=== PATIENT | female | born 1985 | race Hispanic/Latino ===

== ENCOUNTER 2017-03-24 06:07 | Emergency (ER) | payer SELFPAY ==
--- NOTE | 2017-03-24 06:47 | EDM.PDOC ---
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 Of great concern to her considering that she is about 10 weeks . The has been going very well for her. She is 6 para 2, miscarriage 1 with 2 previous abortions. She is not having any pelvic pain or cramping. No chest or abdominal pain. No difficulty breathing or shoulder discomfort. There has not been any prior vaginal bleeding or pelvic discomfort with this . They have just moved to town recently. She is not yet established with an flaker tender. She has not had a pelvic ultrasound with this . 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: Psychiatric History: Reports: Depression, Suicide Attempt <Miguel Gonzáles - Last Filed: 03/24/17 07:11> Social & Family History - Tobacco Use Smoking Status *Q: Never Smoker - Recreational Drug Use Recreational Drug Use: No <Miguel Gonzáles - Last Filed: 03/24/17 07:11> ED ROS GENERAL - Review of Systems Review Of Systems: See Below Constitutional: Denies: Fever, Chills HEENT: Reports: No Symptoms Respiratory: Denies: Shortness of Breath, Pleuritic Chest Pain Cardiovascular: Denies: Chest Pain GI/Abdominal: Denies: Abdominal Pain, Nausea, Vomiting : Reports: Other (Very small amount of vaginal bleeding this morning that has stopped) Musculoskeletal: Denies: Shoulder Pain, Back Pain Skin: Reports: No Symptoms Neurological: Denies: Dizziness <Miguel Gonzáles - Last Filed: 03/24/17 07:11> ED EXAM - Physical Exam Exam: See Below Exam Limited By: No Limitations General Appearance: Alert, No Apparent Distress Throat/Mouth: Normal Inspection, Normal Oropharynx Neck: Supple Respiratory/Chest: No Respiratory Distress, Lungs Clear, Normal Breath Sounds Cardiovascular: Regular Rate, Rhythm GI/Abdominal Exam: Soft, Non-Tender. No: Guarding, Rebound (Female) Exam: Normal External Exam, Vaginal Bleeding (very small amount of blood in the posterior vaginal vault, no clots or tissue visible, cvx is closed ) Extremities: Normal Inspection, Normal Range of Motion Neurological: Alert, Oriented, No Motor/Sensory Deficits Skin Exam: Warm, Dry, Normal Color <Miguel Gonzáles - Last Filed: 03/24/17 07:11> Course <Miguel Gonzáles - Last Filed: 03/24/17 07:11> <Colton Amaral - Last Filed: 03/24/17 09:01> - Vital Signs Last Recorded V/S: Last Vital Signs Temp 35.9 C 03/24/17 06:14 Pulse 80 03/24/17 06:14 Resp 16 03/24/17 06:14 BP 140/91 H 03/24/17 06:14 Pulse Ox 98 03/24/17 06:14 - Orders/Labs/Meds Orders: Active Orders 24 hr Category Date Time Status OB Transvaginal [US] Stat Exams 03/24/17 06:35 Taken ABO/RH TYPE [BBK] Stat Lab 03/24/17 06:55 Results PATIENT RETYPE [BBK] Stat Lab 03/24/17 06:55 Results Labs: Laboratory Tests 03/24/17 03/24/17 03/24/17 Range/Units 06:55 06:55 06:55 WBC 6.52 (3.98-10.04) K/mm3 RBC 4.28 (3.98-5.22) M/mm3 Hgb 12.1 (11.2-15.7) gm/L Hct 36.0 (34.1-44.9) % MCV 84.1 (79.4-94.8) fl MCH 28.3 (25.6-32.2) pg MCHC 33.6 (32.2-35.5) g/dl RDW Std Deviation 42.7 (36.4-46.3) fL Plt Count 302 (182-369) K/mm3 MPV 8.7 L (9.4-12.3) fl Neut % (Auto) 56.7 (34.0-71.1) % Lymph % (Auto) 27.6 (19.3-51.7) % [place] % (Auto) 7.2 (4.7-12.5) % Eos % (Auto) 7.7 H (0.7-5.8) Baso % (Auto) 0.5 (0.1-1.2) % Neut # (Auto) 3.70 (1.56-6.13) K/mm3 Lymph # (Auto) 1.80 (1.18-3.74) K/mm3 [place] # (Auto) 0.47 H (0.24-0.36) K/mm3 Eos # (Auto) 0.50 H (0.04-0.36) K/mm3 Baso # (Auto) 0.03 (0.01-0.08) K/mm3 HCG, Qual Positive H (NEGATIVE) HCG, Quant 5959.0 mIU/mL Blood Type 03/24/17 Range/Units 06:55 WBC (3.98-10.04) K/mm3 RBC (3.98-5.22) M/mm3 Hgb (11.2-15.7) gm/L Hct (34.1-44.9) % MCV (79.4-94.8) fl MCH (25.6-32.2) pg MCHC (32.2-35.5) g/dl RDW Std Deviation (36.4-46.3) fL Plt Count (182-369) K/mm3 MPV (9.4-12.3) fl Neut % (Auto) (34.0-71.1) % Lymph % (Auto) (19.3-51.7) % [place] % (Auto) (4.7-12.5) % Eos % (Auto) (0.7-5.8) Baso % (Auto) (0.1-1.2) % Neut # (Auto) (1.56-6.13) K/mm3 Lymph # (Auto) (1.18-3.74) K/mm3 [place] # (Auto) (0.24-0.36) K/mm3 Eos # (Auto) (0.04-0.36) K/mm3 Baso # (Auto) (0.01-0.08) K/mm3 HCG, Qual (NEGATIVE) HCG, Quant mIU/mL Blood Type A POSITIVE - Re-Assessments/Exams Free Text/Narrative Re-Assessment/Exam: 03/24/17 07:12 change of shift, labs, pelvic US pending. Have transferred care to Dr Amaral. (Miguel Gonzáles) Free Text/Narrative Re-Assessment/Exam: 03/24/17 07:[address] Lorenz at change of shift. Patient is in ultrasound at present. Qualitative beta-hCG is positive. Quantitative is not yet available. I did order a blood type and screen as well. 03/24/17 08:35 Blood type is A+. 03/24/17 09:00 took a while but the ultrasound report is now back. It indicates a gestational sac and fetus that correlates with a 6 week 2 day . Last normal menstrual period was 807 which would give her a gestational age of 10 weeks and 0 days. No heartbeat is appreciated at this time. This suggests demise and at this time she is an incomplete miscarriage. I therefore arranged follow-up with Dr. Anders Gonsales flaker tender at the [facility] on at 1 PM. Prescription written for 12 tablets of Percocet to take one or 2 tablets every 4-6 hours needed for cramping pain relief as well as Motrin 600 mg every 6 hours if needed. Patient is 4 para 2. She states her first ended in miscarriage as well. (Colton Amaral) Departure <Miguel Gonzáles - Last Filed: 03/24/17 07:11> - Departure Time of Disposition: 08:55 Condition: Fair <Colton Amaral - Last Filed: 03/24/17 09:01> - Departure Disposition: Home, Self-Care 01 Clinical Impression: Inevitable complete miscarriage without complication - Discharge Information Prescriptions: oxyCODONE HCl/Acetaminophen [Percocet 5-325 mg Tablet] 1 - 2 each PO Q4H PRN # 12 tablet PRN Reason: pain relief. Referrals: PCP,None [Primary Care Provider] - Forms: ED Department Discharge Additional Instructions: Evaluation the emergency room this morning was carried out due to sudden onset of spotting per vagina in . You had estimated to around 10 weeks gestation but no workup has been carried out. Blood type was found to be a positive. Quantitative beta-hCG which is a measure of the level of hormone of in your blood correlated with a 6 week . Ultrasound however shows a gestational 6 sac and fetus that would be about 6 weeks and 2 days of age. Unfortunately no heartbeat could be identified at this time . This most likely means that you are going to go on to miscarry. Bleeding is likely to become quite heavy like a heavy period with associated cramping. I've arranged follow-up with Dr.C. Pickering flaker tender on at 1:00 PM. They request to you arrived around 12:30 PM to get the paperwork done. In the meantime expect flow to gradually get worse and cramping to worsen as well. I have written a prescription for Percocet 5/3/25 milligram tablets may take one or 2 every 4-6 hours with Motrin 600 mg every 6 hours to relieve pain and inflammation if needed. The women's clinic is located on the third floor on the east side of the hospital. Phone number is [phone]. Return to the ED if the flow becomes super heavy soaking a pad per hour for more than 2 consecutive hours as this may be surgical intervention may be required. - My Orders Last 24 Hours: My Active Orders 03/24/17 06:55 ABO/RH TYPE [BBK] Stat PATIENT RETYPE [BBK] Stat - Assessment/Plan Last 24 Hours: My Active Orders 03/24/17 06:55 ABO/RH TYPE [BBK] Stat PATIENT RETYPE [BBK] Stat
--- NOTE | 2017-03-24 09:31 | US ---
First trimester obstetrical ultrasound: Multiple real-time images were obtained transvaginally. Dates: LMP: LMP given as 01/13/17, ISABELLE 10/20/17, gestational age 10 weeks 0 days Current ultrasound: ISABELLE 11/15/17, gestational age 6 weeks 2 days Single intrauterine gestation is seen. pole is seen. No subchorionic hemorrhage is seen. No heart activity is identified at this time. Incidental varicosities noted within the left adnexa. Small amount of fluid is seen within the right adnexa which is felt to be incidental. 2 small hypoechoic areas are seen within the right ovary which are believed to be incidental. Measurements: [place]-rump length: 0.56 cm - 6 weeks 2 days Impression: 1. Single intrauterine gestation. Dates as noted above. 2. No heart activity is identified. If patient does not miscarry, recommend repeat study in 11 days to confirm lack of heart activity. Diagnostic code #3
== END 2017-03-24 09:15 | disposition home or self-care (01) ==
LOC: JD.ED 06:07
DX: O03.9 Complete or unspecified spontaneous abortion without complication (principal); J45.909 Unspecified asthma, uncomplicated; F32.9 Major depressive disorder, single episode, unspecified
CPT/HCPCS: 36415; 76817; 76817-26; 84702; 84703; 85025; 86900; 86901; 99284; 99284-25

== ENCOUNTER 2021-01-31 22:31 | Inpatient (IN) | payer BC ==
[2021-01-31] MEDS ORDERED: Sodium Chloride 0.9% 10 ML Syringe FLUSH PRN (22:36)
[2021-01-31] MEDS ORDERED: Nalbuphine 10 MG/1 ML Vial IVPUSH PRN (22:36)
[2021-01-31] MEDS ORDERED: Lactated Ringers 1,000 ML IV SCH (22:45)
[2021-01-31] MEDS ORDERED: Lidocaine 1% 50 ML MDV INJECT ONE (23:24)
[2021-01-31] MEDS ORDERED: Oxytocin/Lactated Ringers 10 UNIT/1,000 ML BAG IV SCH (23:30)
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
--- NOTE | 2021-02-01 00:47 | PCM.DEL ---
L & D Note - General Info Date of Service: 02/01/21 Mother's Due Date: 01/29/21 - Delivery Note Labor: Spontaneous, Augmented by ARM Delivery Outcome: Livebirth Delivery Method: Spontaneous Vaginal Delivery-Single Presentation: Right Occiput Anterior (SAMEER) Nuchal Cord: None Amniotic Fluid Description: Clear Episiotomy Type: None Laceration: 1st Degree (midline clitoral clements, hemostatic, not repaired) Placenta: Intact, Spontaneous Cord: 3 Vessels Estimated Blood Loss: 300 [place]: Suctioned, Bulb Syringe, Stimulated, Warmed, Turrell Used, Warmer Used Provider: Mike Bingham Score 1 min: 7 Score 5 min: 8 Second Stage Interventions: Reports: Pushing Effectively, Pushing Involuntarily Delivery Comments (Free Text/Narrative):: Stage I: Flores Youssef was admitted for spontaneous labor with advanced cervical dilation. On admission her cervix was dilated to 7 cm. She was GBS negative. She had artificial rupture of membranes with return of clear fluid. She progressed to complete and pushing. Stage II: On 02/01/2021 she had a normal vaginal delivery of a live female at 00:11. Apgars of 7 & 8. Weight of 3440 g (7 lbs 9.3 oz). Length of 21.5 inches. There was no nuchal cord. Infant was delivered in SAMEER position. The cord was doubly clamped and cut by father of the infant at approximately 90 seconds of life. Infant was placed on mother's abdomen and then taken to the warmer for further resuscitation. Stage III: She had a spontaneous delivery of an intact placenta in [place] presentation. Three vessel cord. She was given pitocin and fundal massage. She had a first-degree midline clitoral clements laceration that was hemostatic and not repaired. Mom and baby were stable to recovery. EBL of 300 mL. Andres Pickering MD 12:46 AM 02/01/2021 - General Info Date of Service: 02/01/21 - Patient Data Vitals - Most Recent: Last Vital Signs Temp 36.6 C 01/31/21 22:36 Pulse 79 01/31/21 22:36 Resp 18 01/31/21 22:36 BP 132/73 01/31/21 22:36 Pulse Ox 100 01/31/21 22:36 Weight - Most Recent: 116.573 kg Lab Results Last 24 Hours: Laboratory Results - last 24 hr 01/31/21 01/31/21 01/31/21 Range/Units 22:43 22:55 22:55 WBC 7.31 (3.98-10.04) K/mm3 RBC 4.50 (3.98-5.22) M/mm3 Hgb 12.2 (11.2-15.7) gm/dl Hct 38.0 (34.1-44.9) % MCV 84.4 (79.4-94.8) fl MCH 27.1 (25.6-32.2) pg MCHC 32.1 L (32.2-35.5) g/dl RDW Std Deviation 46.1 (36.4-46.3) fL Plt Count 261 (182-369) K/mm3 MPV 9.8 (9.4-12.3) fl Neut % (Auto) 69.1 (34.0-71.1) % Lymph % (Auto) 20.0 (19.3-51.7) % [place] % (Auto) 7.5 (4.7-12.5) % Eos % (Auto) 2.7 (0.7-5.8) Baso % (Auto) 0.4 (0.1-1.2) % Neut # (Auto) 5.05 (1.56-6.13) K/mm3 Lymph # (Auto) 1.46 (1.18-3.74) K/mm3 [place] # (Auto) 0.55 H (0.24-0.36) K/mm3 Eos # (Auto) 0.20 (0.04-0.36) K/mm3 Baso # (Auto) 0.03 (0.01-0.08) K/mm3 POC Glucose (70-99) mg/dL SARS-CoV-2 RNA (EULOGIO) Negative (NEGATIVE) Blood Type A POSITIVE Gel Antibody Screen Negative 01/31/21 Range/Units 23:21 WBC (3.98-10.04) K/mm3 RBC (3.98-5.22) M/mm3 Hgb (11.2-15.7) gm/dl Hct (34.1-44.9) % MCV (79.4-94.8) fl MCH (25.6-32.2) pg MCHC (32.2-35.5) g/dl RDW Std Deviation (36.4-46.3) fL Plt Count (182-369) K/mm3 MPV (9.4-12.3) fl Neut % (Auto) (34.0-71.1) % Lymph % (Auto) (19.3-51.7) % [place] % (Auto) (4.7-12.5) % Eos % (Auto) (0.7-5.8) Baso % (Auto) (0.1-1.2) % Neut # (Auto) (1.56-6.13) K/mm3 Lymph # (Auto) (1.18-3.74) K/mm3 [place] # (Auto) (0.24-0.36) K/mm3 Eos # (Auto) (0.04-0.36) K/mm3 Baso # (Auto) (0.01-0.08) K/mm3 POC Glucose 91 (70-99) mg/dL SARS-CoV-2 RNA (EULOGIO) (NEGATIVE) Blood Type Gel Antibody Screen Med Orders - Current: Current Medications Lactated Ringer's (Ringers, Lactated) 1,000 mls @ 100 mls/hr IV ASDIRECTED BUZZ Oxytocin/Lactated Ringer's (Pitocin In Lr 10 Units/1,000 Ml) 10 unit in 1,000 mls @ 500 mls/hr IV ASDIRECTED BUZZ; Protocol Nalbuphine HCl (Nalbuphine 10 Mg/1 Ml Vial) 10 mg IVPUSH Q2H PRN PRN Reason: Pain Sodium Chloride (Sodium Chloride 0.9% 10 Ml Syringe) 10 ml FLUSH ASDIRECTED PRN PRN Reason: Keep Vein Open Discontinued Medications Lidocaine HCl (Lidocaine 1% 50 Ml Mdv) 50 ml INJECT ONETIME ONE Stop: 01/31/21 23:25 - Problem List & Annotations (1) 40 weeks gestation of SNOMED Code(s): 34055448 Code(s): Z3A.40 - 40 WEEKS GESTATION OF Status: Acute Current Visit: Yes (2) White classification A2 gestational diabetes mellitus (GDM), insulin controlled SNOMED Code(s): 19935560 Code(s): O24.414 - GESTATIONAL DIABETES IN , INSULIN CONTROLLED Status: Acute Current Visit: Yes (3) Asthma affecting , antepartum SNOMED Code(s): 79452402750968, 15646856488843 Code(s): O99.519 - DISEASES OF THE RESP SYS COMP , UNSP TRIMESTER; J45.909 - UNSPECIFIED ASTHMA, UNCOMPLICATED Status: Acute Current Visit: Yes (4) Depression affecting in third trimester, antepartum SNOMED Code(s): 90166854, 023691044 Code(s): O99.343 - OTH MENTAL DISORDERS COMPLICATING , THIRD TRIMESTER; F32.9 - MAJOR DEPRESSIVE DISORDER, SINGLE EPISODE, UNSPECIFIED Status: Acute Current Visit: Yes (5) Complex cyst of right ovary SNOMED Code(s): 44197149646178534 Code(s): N83.291 - OTHER OVARIAN CYST, RIGHT SIDE Status: Acute Current Visit: Yes (6) Vaginal delivery SNOMED Code(s): 980057024 Code(s): O80 - ENCOUNTER FOR FULL-TERM UNCOMPLICATED DELIVERY Status: Acute Current Visit: Yes - Problem List Review Problem List Initiated/Reviewed/Updated: Yes - My Orders Last 24 Hours: My Active Orders 01/31/21 22:36 Patient Status [ADT] Routine Activity as Tolerated [RC] PFP Communication Order [RC] ASDIRECTED Heart Tones [RC] ASDIRECTED Non Stress Test [RC] PER UNIT ROUTINE Notify Provider [RC] PFP Notify Provider [RC] PRN Peripheral IV Care [RC] . DIRECTED Vital Signs [RC] PER UNIT ROUTINE Nalbuphine [Nubain] 10 mg IVPUSH Q2H PRN Sodium Chloride 0.9% [Saline Flush] 10 ml FLUSH ASDIRECTED PRN Electronic Heart Tones Ext w TOCO [WOMSER] Routine Electronic Heart Tones Internal [WOMSER] Per Unit Routine Peripheral IV Insertion Adult [OM.PC] Routine Resuscitation Status Routine 01/31/21 22:45 Lactated Ringers [Ringers, Lactated] 1,000 ml IV ASDIRECTED 01/31/21 22:55 RAPID PLASMA REAGIN,RPR [CHEM] Routine 01/31/21 23:18 Blood Glucose Check, Bedside [RC] Q2HR 01/31/21 23:30 Oxytocin/Lactated Ringers [Pitocin in LR 10 Units/1,000 ML] 10 unit in 1,000 ml IV ASDIRECTED 02/01/21 00:36 Patient Status Manage Transfer [TRANSFER] Routine - Plan Plan:: Flores Youssef is a 35-year-old G8 now P4-0-4-4 female status post , PPD #0 complicated by A2 gestational diabetes on insulin, depression currently on Zoloft for medication, asthma, obesity and complex right ovarian cyst Admit to inpatient following normal spontaneous vaginal delivery Continue Pitocin per unit protocol following delivery of placenta and lactated Ringer's until tolerating regular diet Regular diet Vitals per unit routine Ibuprofen and Tylenol for pain control Assist with breast-feeding as needed Continue to monitor lochia Continue Zoloft 25 mg daily for control of anxiety and depression Check fasting blood sugar in the morning of PPD #0 and consider recheck in the morning of PPD #1 due to insulin controlled A2 gestational Anticipate discharge home on day #1 Andres Pickering MD 12:48 AM 02/01/2021
[2021-02-01] MEDS ORDERED: Ibuprofen 600 MG Tab PO PRN (01:50)
[2021-02-01] MEDS ORDERED: Magnesium Hydroxide 400 MG/5 ML Susp 30 ML Cup PO PRN (01:50)
[2021-02-01] MEDS ORDERED: Witch Hazel Medicated Pads 40/Jar TOP PRN (01:50)
[2021-02-01] MEDS ORDERED: Hydrocortisone Acetate 25 MG Supp RECTAL PRN (01:50)
[2021-02-01] MEDS ORDERED: Acetaminophen 325 MG Tab PO PRN (01:50)
[2021-02-01] MEDS ORDERED: Docusate Sodium 100 MG Cap PO PRN (01:50)
[2021-02-01] MEDS ORDERED: Oxytocin/Lactated Ringers 10 UNIT/1,000 ML BAG IV SCH (01:50)
[2021-02-01] MEDS ORDERED: Benzocaine/Menthol 20%-0.5% Spray 56 GM Canister TOP PRN (01:50)
[2021-02-02] MEDS: Prenatal Multivitamin with Calcium/Folic Acid/Iron Tab PO SCH ×2 (07:31→09:06)
[2021-02-02] MEDS: Sertraline 25 MG Tab PO SCH ×2 (07:31→09:06)
--- NOTE | 2021-02-02 10:44 | PCM.DCSUM1 ---
Discharge Summary - Hospital Course Free Text/Narrative:: Stage I: Flores Youssef was admitted for spontaneous labor with advanced cervical dilation. On admission her cervix was dilated to 7 cm. She was GBS negative. She had artificial rupture of membranes with return of clear fluid. She progressed to complete and pushing. Stage II: On 02/01/2021 she had a normal vaginal delivery of a live female at 00:11. Apgars of 7 & 8. Weight of 3440 g (7 lbs 9.3 oz). Length of 21.5 inches. There was no nuchal cord. was delivered in SAMEER position. The cord was doubly clamped and cut by father of the at approximately 90 seconds of life. was placed on mother's abdomen and then taken to the warmer for further resuscitation. Stage III: She had a spontaneous delivery of an intact placenta in [place] presentation. Three vessel cord. She was given pitocin and fundal massage. She had a first-degree midline clitoral clements laceration that was hemostatic and not repaired. Mom and baby were stable to recovery. EBL of 300 mL. the patient has been doing very well. She is nursing without problems, ambulating well, voiding without concerns and has minimal lochia. Her vital signs been stable and she has been afebrile. She is desiring discharge home. Diagnosis: Stroke: No - Discharge Data Discharge Date: 02/02/21 Discharge Disposition: Home, Self-Care 01 Condition: Good - Referral to Home Health Primary Care Physician: Tiago Nava MD - Patient Instructions Diet: Regular Diet as Tolerated (Nursing diet with increased calories and calcium as recommended) Activity: As Tolerated (No intercourse or tampons until bleeding resolves.) Driving: May Drive Today Showering/Bathing: May Shower (May take a bath) Notify Provider of: Fever, Increased Pain, Swelling and Redness, Nausea and/or Vomiting - Discharge Plan Home Medications: Home Meds Pnv No.95/Ferrous Fum/Folic AC [ Multivitamin Tablet] 1 tab PO DAILY 03/24/17 [History] Mometasone Furoate [Asmanex] 1 puff IH ASDIRECTED PRN 02/01/21 [History] Acetaminophen [Tylenol] 650 mg PO Q6H PRN tablet 02/02/21 [Rx] Ibuprofen [Motrin] 600 mg PO Q6H PRN tablet 02/02/21 [Rx] Sertraline [Zoloft] 25 mg PO DAILY tablet 02/02/21 [Rx] Patient Handouts: Care After Vaginal Delivery Referrals: Tiago Nava MD [Primary Care Provider] - (Return to clinic[facility] weeks.) - Discharge Summary/Plan Comment DC Time >30 min.: No Total # of Minutes for Discharge Time: 10 Discharge Summary/Plan Comment: Discharge instructions: 1. Discharge home 2. Diet, activity and follow-up discussed with patient. Recommend nursing diet with increased calories and calcium. 3. Precautions given concern increased pain, bleeding, temperature, signs/symptoms of DVT/PE. 4. Medications per home medication was printed, discussed with and given to the patient. 5. Return to clinic-Dr. Nava-[facility] in 2 weeks. Diagnosis: Term -delivered Condition: Good - Patient Data Vitals - Most Recent: Last Vital Signs Temp 36.4 C 02/02/21 03:39 Pulse 80 02/02/21 03:39 Resp 14 02/02/21 03:39 BP 134/72 02/02/21 03:39 Pulse Ox 95 02/02/21 03:39 Weight - Most Recent: 116.573 kg I&O - Last 24 hours: Intake & Output 02/01/21 02/02/21 02/02/21 22:59 06:59 14:59 Intake Total 0 Balance 0 Lab Results - Last 24 hrs: Laboratory Results - last 24 hr 01/31/21 Range/Units 22:55 RPR Non-reactive (NONREACTIVE) Med Orders - Current: Current Medications Acetaminophen (Acetaminophen 325 Mg Tab) 650 mg PO Q6H PRN PRN Reason: mild pain or fever Benzocaine/Menthol (Benzocaine/Menthol 20%-0.5% [place] 56 Gm Canister) 0 gm TOP ASDIRECTED PRN PRN Reason: Perineal Comfort Measure Last Admin: 02/01/21 02:27 Dose: 1 applic Documented by: Docusate Sodium (Docusate Sodium 100 Mg Cap) 100 mg PO BID PRN PRN Reason: Constipation Hydrocortisone Acetate (Hydrocortisone Acetate 25 Mg Supp) 25 mg RECTAL BID PRN PRN Reason: Hemorrhoid pain Oxytocin/Lactated Ringer's (Pitocin In Lr 10 Units/1,000 Ml) 10 unit in 1,000 mls @ 100 mls/hr IV TITRATE BUZZ; Protocol Ibuprofen (Ibuprofen 600 Mg Tab) 600 mg PO Q6H PRN PRN Reason: Mild pain or fever Magnesium Hydroxide (Magnesium Hydroxide 400 Mg/5 Ml Susp 30 Ml Cup) 30 ml PO BEDTIME PRN PRN Reason: Constipation Prenat Multivit/[place]/Iron/Folic Ac ( Multivitamin With Calcium/Folic Acid/Iron Tab) 1 each PO DAILY BUZZ Last Admin: 02/02/21 09:06 Dose: Not Given Documented by: Sertraline HCl (Sertraline 25 Mg Tab) 25 mg PO DAILY BUZZ Last Admin: 02/02/21 09:06 Dose: Not Given Documented by: Lacey Mi (Lacey Mi Medicated Pads 40/Jar) 1 pad TOP ASDIRECTED PRN PRN Reason: Perineal Comfort Measure Last Admin: 02/01/21 02:27 Dose: 1 applic Documented by: Discontinued Medications Lactated Ringer's (Ringers, Lactated) 1,000 mls @ 100 mls/hr IV ASDIRECTED BUZZ Oxytocin/Lactated Ringer's (Pitocin In Lr 10 Units/1,000 Ml) 10 unit in 1,000 mls @ 500 mls/hr IV ASDIRECTED BUZZ; Protocol Last Admin: 02/01/21 04:04 Dose: 500 mls/hr Documented by: Lidocaine HCl (Lidocaine 1% 50 Ml Mdv) 50 ml INJECT ONETIME ONE Stop: 01/31/21 23:25 Nalbuphine HCl (Nalbuphine 10 Mg/1 Ml Vial) 10 mg IVPUSH Q2H PRN PRN Reason: Pain Sodium Chloride (Sodium Chloride 0.9% 10 Ml Syringe) 10 ml FLUSH ASDIRECTED PRN PRN Reason: Keep Vein Open
== END 2021-02-02 12:43 | disposition home or self-care (01) | DRG 560 ==
LOC: JD.OBCHECK 22:31 → JD.OB 22:31 → JD.OBCHECK 22:35 → JD.OB 22:36 → OBSVTOIN 02-01 00:11 → JD.OB 02-01 00:12
PROVIDERS: ADMIT Obstetrics & Gynecology; ATTEND Obstetrics & Gynecology
PROC: 10E0XZZ Delivery of Products of Conception, External Approach (ICD-10-PCS; principal; 2021-02-01)
PROC: 10907ZC Drainage of Amniotic Fluid, Therapeutic from Products of Conception, Via Natural or Artificial Opening (ICD-10-PCS; 2021-02-01)
DX: O48.0 Post-term pregnancy (principal); Z37.0 Single live birth; O24.424 Gestational diabetes mellitus in childbirth, insulin controlled; O99.52 Diseases of the respiratory system complicating childbirth; J45.909 Unspecified asthma, uncomplicated; O99.892 Other specified diseases and conditions complicating childbirth; Z20.822 Contact with and (suspected) exposure to COVID-19; N83.291 Other ovarian cyst, right side; O99.344 Other mental disorders complicating childbirth; F32.9 Major depressive disorder, single episode, unspecified; F41.9 Anxiety disorder, unspecified; O71.89 Other specified obstetric trauma; O99.214 Obesity complicating childbirth; Z3A.40 40 weeks gestation of pregnancy
CPT/HCPCS: 36415; 59025; 59409; 82947; 85025; 86592; 86850; 86900; 86901; A9270-GY; J2590; U0002

== ENCOUNTER 2024-08-17 15:22 | Emergency (ER) | payer BC ==
[2024-08-17] MEDS ORDERED: Naloxone 0.4 MG/ML SDV IVPUSH PRN ×2 (15:39→16:51)
[2024-08-17 15:51] LABS: BASOPHILS ABSOLUTE AUTO 0.1 K/mm3 (0.0-0.2); BASOPHILS PERCENT AUTO 0.5 % (0.0-1.0); EOSINOPHILS ABSOLUTE AUTO 0.2 K/mm3 (0.0-0.4); EOSINOPHILS PERCENT AUTO 1.6 % (0.0-6.0); HEMATOCRIT 38.2 % (37.0-47.0); HEMOGLOBIN 12.7 gm/dl (12.0-16.0); IMMATURE GRAN ABSOLUTE AUTO 0.02 K/mm3 (0.00-0.05); IMMATURE GRAN PERCENT AUTO 0.2 % (0.0-0.4); LYMPHOCYTES ABSOLUTE AUTO 1.5 K/mm3 (1.0-4.8); LYMPHOCYTES PERCENT AUTO 15.8 % (24.0-44.0); MEAN CORPUSCULAR HEMOGLOBIN 27.1 pg (28.0-32.0); MEAN CORPUSCULAR HGB CONC 33.2 g/dl (32.0-36.0); MEAN CORPUSCULAR VOLUME 81.4 fl (83.0-99.0); MEAN PLATELET VOLUME 9.1 fl (9.4-12.3); MONOCYTES ABSOLUTE AUTO 0.5 K/mm3 (0.0-0.8); MONOCYTES PERCENT AUTO 5.2 % (0.0-8.0); NEUTROPHILS ABSOLUTE AUTO 7.4 K/mm3 (1.8-7.7); NEUTROPHILS PERCENT AUTO 76.7 % (41.0-71.0); PLATELET COUNT,PLT 359 K/mm3 (150-400); RED BLOOD CELL COUNT 4.69 M/mm3 (4.10-5.30); WHITE BLOOD CELL COUNT,WBC 9.64 K/mm3 (3.9-11.3)
[2024-08-17] MEDS: Sodium Chloride 0.9% 1,000 ML IV ONE (15:52)
[2024-08-17] MEDS: HYDROmorphone 0.5 MG/0.5 ML Syringe IVPUSH ONE ×2 (15:52→16:56)
[2024-08-17] MEDS: Metoclopramide 10 MG/2 ML SDV IVPUSH ONE (15:52)
[2024-08-17 16:15] LABS: A/G RATIO 1.1 (1-2); ALBUMIN 4.3 g/dl (3.4-5.0); ANION GAP 22.1 (5-15); BILIRUBIN TOTAL 0.6 mg/dL (0.2-1.0); BUN/CREATININE RATIO 8.2 (14-18); C-REACTIVE PROTEIN 0.12 mg/dL (<0.30); CALCIUM 9.5 mg/dL (8.5-10.1); CREATININE 1.1 mg/dL (0.55-1.02); EST CRCL DRUG DOSING (CG) 75.72 mL/min; POTASSIUM,K 4.1 mEq/L (3.5-5.1); PROTEIN TOTAL,TP 8.2 g/dl (6.4-8.2)
[2024-08-17] MEDS: Ondansetron 4 MG/2 ML SDV IVPUSH ONE (16:55)
[2024-08-17] MEDS: Sodium Chloride 0.9% 10 ML Syringe FLUSH ONE (17:14)
[2024-08-17] MEDS: Iopamidol 612 MG/ML 100 ML Bottle IVPUSH ONE (17:14)
[2024-08-17 17:48] LABS: APPEARANCE,URINE TURBID (Clear); BILIRUBIN,URINE 1+ (Negative); COLOR,URINE AMBER (Yellow); GLUCOSE,URINE NEGATIVE (Negative); KETONES,URINE 4+ (Negative); LEUKOCYTE ESTERASE,URINE NEGATIVE (Negative); NITRITE,URINE NEGATIVE (Negative); OCCULT BLOOD,URINE 3+ (Negative); PROTEIN,URINE 2+ (Negative); UROBILINOGEN,URINE 0.2 (0.2-1.0)
[2024-08-17 18:08] LABS: BACTERIA,URINE FEW /hpf (FEW); MUCUS,URINE FEW /hpf (FEW); RBC,URINE TOO NUMEROUS TO CNT /hpf (0-5); SQUAMOUS EPITHELIAL CELLS,UR 0-5 /hpf (0-5); WBC,URINE 0-5 /hpf (0-5)
== END 2024-08-17 19:11 | disposition home or self-care (01) ==
LOC: JD.ED 15:22
DX: R10.32 Left lower quadrant pain (principal); E11.9 Type 2 diabetes mellitus without complications; Z79.899 Other long term (current) drug therapy
CPT/HCPCS: 36415; 74177; 80053; 81001; 83690; 84703; 85025; 86140; 96361; 96374; 96375; 96376; 99284; J2405; J2765; J7030; Q9967; 99283